=== PATIENT | female | born 1960 | race Caucasian/White ===

== ENCOUNTER → 2018-12-30 | Outpatient (CLI) | payer BC ==
[2018-12-18 09:38] VITALS: BP 125/73
[~2018-12-30] MED LIST: AMOXICILLIN875 MG PO; CETIRIZINE HCL10 MG PO
== END ==
LOC: RAD 10:30
DX: F17.200 Nicotine dependence, unspecified, uncomplicated (principal)

== ENCOUNTER → 2020-01-02 | Outpatient (CLI) | payer BC ==
[2018-12-18 09:38] VITALS: BP 125/73
[~2020-01-02] MED LIST changes: +CLARITIN-D 10 M1 T24 PO; +PHARMASSURE CHE30 MG PO; +VIBRAMYCIN HYC100 MG PO
== END ==
LOC: LAB 15:56
DX: J02.9 Acute pharyngitis, unspecified (principal); R53.83 Other fatigue; Z20.828 Contact with and (suspected) exposure to other viral communicable diseases

== ENCOUNTER → 2020-11-01 | Outpatient (CLI) | payer BC | LOC: AMSURD 12:31 | DX: R22.32 Localized swelling, mass and lump, left upper limb (principal) ==

== ENCOUNTER → 2020-11-07 | Outpatient (CLI) | payer BC | LOC: LAB 17:13 | DX: Z20.822 Contact with and (suspected) exposure to COVID-19 (principal) ==